=== PATIENT | female | born 1970 | race Caucasian/White ===

== ENCOUNTER → 2017-11-01 | Day surgery (SDC) | payer OTHER ==
[~2017-11-01] VITALS: Ht 157.5 cm; Wt 54.9 kg
--- NOTE | 2017-11-01 10:44 | Operative Report ---
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 The Bartholin's was injected with Marcaine on the left. I the excisional biopsy on the right was performed using a needle-tipped Bovie on Silvadene cream was applied to the vulva area. At this point the labia was opened the Bartholin's gland was teased away from the base of the gland on hemostasis was achieved using 20 as well as a Bovie patient tolerated this well the Ybarra was removed proximated using 2-0 suture in was 6 was apparent on at the end the case Silvadene was applied to the condyloma site patient was returned spine position awakened from anesthesia and transferred recovery room awake alert counts correct
== END ==
LOC: STS 02:49
DX: C51.0 Malignant neoplasm of labium majus (principal); D28.0 Benign neoplasm of vulva; F17.200 Nicotine dependence, unspecified, uncomplicated
CPT/HCPCS: 81025; J2250; J3490